=== PATIENT | female | born 1980 | race Caucasian/White ===

== ENCOUNTER 2018-08-05 13:43 | Emergency (ER) | payer MEDICAID ==
[2018-08-05] MEDS: predniSONE 20 MG TAB PO (14:28)
[2018-08-05] MEDS: ACETAMINOPHEN 325 MG TAB PO (14:28)
[2018-08-05] MEDS: DIPHENHYDRAMINE 25 MG CAP PO (14:28)
[2018-08-05] MEDS: DIPHTH/TET/ACEL PERTUSS (ADULT) 0.5 ML VIAL IM* (14:31)
== END 2018-08-05 14:45 | disposition home or self-care (01) ==
LOC: FTE 14:45
DX: T63.444A Toxic effect of venom of bees, undetermined, initial encounter (principal); Z23 Encounter for immunization
CPT/HCPCS: 90471; 90715; 99283-25